=== PATIENT | female | born 1985 | race African-American/Black ===

== ENCOUNTER 2019-06-22 08:21 | Emergency (ER) | payer OTHER, SELFPAY ==
[2019-06-22 08:30] VITALS: BP 128/83; PULSE 77; RESP 16; TEMP 37.4; O2SAT 100
--- NOTE | 2019-06-22 08:43 | ED.FEMALEGU ---
HPI - Female Genitourinary General Stated complaint: uti Time Seen by Provider: 06/22/19 08:43 Source: patient and RN notes reviewed History of Present Illness HPI Narrative: Patient is a 33-year-old female that presents the urgent care with complaints of a possible UTI. Patient states that she has had 3 UTIs in the last 12 months and per records she is been treated with Keflex, Bactrim, Macrobid. Patient states that she is gone here and [facility] and is unsure if they have ever cultured her urine. Patient states no one is really ever discussed the results with her other than the fact that she had a UTI . Patient states that her symptoms seem to come and go with pain with urination, some frequency, some urgency and decreased urinary output. Patient states she is also noted a foul smell at different periods. Patient denies any concern for STD. Denies of any fever, nausea, vomiting, back pain. No other acute complaints. No acute distress noted. Patient read the plan of care. Related Data Allergies Allergy/AdvReac Type Severity Reaction Status Date / Time No Known Allergies Allergy Unverified 10/29/18 19:18 Review of Systems Review of Systems: Narrative: CONSTITUTIONAL: Denies fever, chills, or sweats. EYES: Denies visual changes, redness, or discharge. ENT: Denies rhinorrhea, congestion, sore throat, or otalgia. CARDIOVASCULAR: Denies chest pain, palpitations, or edema. RESPIRATORY: Denies cough or dyspnea. GASTROINTESTINAL: Denies abdominal pain, nausea, vomiting, or diarrhea. GENITOURINARY: Reports of dysuria, urgency, frequency, decreased urinary output?all intermittent symptoms with nothing consistent SKIN: Denies rash or itching. MUSCULOSKELETAL: Denies back pain, joint pain, or myalgia. NEUROLOGIC: Denies headache, numbness, or weakness. All other systems reviewed are negative, except as documented in HPI. PMFSH Comments At the time of my signature, I reviewed and agree with the nursing past medical, surgical, social, and family history. There is no relevant family history pertinent to the patient complaint. Exam Narrative: Exam Narrative: GENERAL: This is a well-nourished, well-developed patient, in no apparent distress. HEAD: normocephalic, atraumatic. EYES: PERRL. Sclera clear/white. Vision is grossly intact. EARS: External ears normal NOSE: External nose normal with no obvious nasal discharge THROAT: Mucous membranes moist NECK: Neck supple GASTROINTESTINAL: Abdomen soft, non-tender, nondistended. SKIN: warm, intact with no suspicious lesions or rash, good texture and turgor. NEURO: awake, alert, and oriented to person, place and time. There were no obvious focal neurologic abnormalities. EXTREMITIES: No clubbing, cyanosis, or edema. BACK: Negative bilateral CVA tenderness Course Vital Signs Vital signs: Vital Signs Temperature 99.3 F 06/22/19 08:30 Pulse Rate 77 06/22/19 08:30 Respiratory Rate 16 06/22/19 08:30 Blood Pressure 128/83 06/22/19 08:30 Pulse Oximetry 100 06/22/19 08:30 Temperature 99.3 F 06/22/19 08:30 Pulse Rate 77 06/22/19 08:30 Respiratory Rate 16 06/22/19 08:30 Blood Pressure 128/83 06/22/19 08:30 Pulse Oximetry 100 06/22/19 08:30 Reviewed MDM - Female Genitourinary MDM Narrative Medical decision making narrative: Reviewed urinalysis results with the patient. She is aware that urine analysis does not indicate urinary tract infection. No notable bacteria in the urine. However, we will culture the urine due to frequent UTIs within the last 12-month., And call her with any positive results. Advised the patient to call us after 72 hours if she is concerned with her culture results. Discussed with the patient due to her frequency of diagnosed UTIs without any culture results, she could most definitely have cystitis. Advised the patient to follow-up in the emergency room if she develops any increase in symptoms associated with nausea, vomiting, back pa
== END 2019-06-22 09:00 | disposition home or self-care (01) ==
PROVIDERS: Emergency Provider Nurse Practitioner Family; PCP Internal Medicine
DX: N30.90 Cystitis, unspecified without hematuria (principal); B96.20 Unspecified Escherichia coli [E. coli] as the cause of diseases classified elsewhere
CPT/HCPCS: 81003; 87077; 87086; 87088; 87186; 99213; G0463

== ENCOUNTER 2020-01-06 09:47 | Emergency (ER) | payer OTHER, SELFPAY ==
--- NOTE | ~2020-01-06 | XR_ITS ---
EXAMINATION: XR shoulder LT min 2V EXAM DATE: 01/06/2020 10:17 INDICATION: Left shoulder anterior pain with adduction. No known recent injury. TECHNIQUE: The following left shoulder projections obtained: frontal projection with internal rotatio n, frontal projection with external rotation, Grashey, and axillary (4+ views). There is no prior st udy for comparison. FINDINGS: There is elongated ovoid shaped ossification along the anterior aspect of the rotator cuff, could be calcific tendinosis. This finding has been indicated, marked on the examination for review, clinical correlation. Unremarkable left glenohumeral and acromioclavicular joints. There are no ac [place] fractures or dislocations identified. There is no subcutaneous gas. The soft tissue is unremark able. There are no radiopaque foreign bodies. IMPRESSION: Soft tissue ossification which could be anterior rotator cuff calcific tendinosis. No ac [place] left shoulder findings. Reviewed, dictated and finalized at location [facility] [employer] IMPRESSION: Soft tissue ossification which could be anterior rotator cuff calci fic tendinosis. No acute left shoulder findings.
[2020-01-06 09:55] VITALS: BP 142/86; PULSE 89; RESP 16; TEMP 37.2; O2SAT 99
--- NOTE | 2020-01-06 10:22 | ED.UPPEXIN ---
HPI - Extremity Injury (Upper) General Chief Complaint: Extremity Injury, Upper Stated Complaint: Left arm pain Related Data Home Medications Medication Instructions Recorded Confirmed No Home Medications 01/06/20 01/06/20 Allergies Allergy/AdvReac Type Severity Reaction Status Date / Time No Known Allergies Allergy Unverified 10/29/18 19:18 Review of Systems Review of Systems: Narrative: CONSTITUTIONAL: Denies fever, chills, or sweats. EYES: Denies visual changes, redness, or discharge. ENT: Denies rhinorrhea, congestion, sore throat, or otalgia. CARDIOVASCULAR: Denies chest pain, palpitations, or edema. RESPIRATORY: Denies cough or dyspnea. GASTROINTESTINAL: Denies abdominal pain, nausea, vomiting, or diarrhea. GENITOURINARY: Denies dysuria or hematuria. SKIN: Denies rash or itching. MUSCULOSKELETAL: Left shoulder pain NEUROLOGIC: Denies headache, numbness, dizziness, or weakness. PSYCHIATRIC: Denies anxiety or depression. [facility] Past Medical History Medical History UTI (urinary tract infection) Surgical History Surgical History No significant past surgical history Family History Family History (Updated 01/06/20 @ 10:34 by FANNY Wooten) Other Hypertension Social History Social History (Updated 01/06/20 @ 10:34 by FANNY Wooten) Smoking status: Never smoker Alcohol intake: never Substance use: never Living arrangements: with family Gender identity (if verbalized by the patient): Female Exam Narrative: Exam Narrative: GENERAL: Well-appearing, well-nourished, and in no acute distress. HEAD: Normocephalic, atraumatic. EYES: Conjunctiva are normal. ENT: Mucous membranes pink and moist. CHEST: Clear to auscultation. EXTREMITIES: Slightly decreased range of motion in left shoulder, distal sensation intact good peripheral pulses, good capillary refill. Pain noted with passive and active range of motion. SKIN: Warm, dry, no rash. NEURO: No focal deficits. Alert and oriented x3. Gait steady. PSYCH: Normal affect. No signs of depression or anxiety. Course Vital Signs Vital signs: Vital Signs Temperature 37.2 C 01/06/20 09:55 Pulse Rate 89 01/06/20 09:55 Respiratory Rate 16 01/06/20 09:55 Blood Pressure 142/86 H 01/06/20 09:55 Pulse Oximetry 99 01/06/20 09:55 Temperature 37.2 C 01/06/20 09:55 Pulse Rate 89 01/06/20 09:55 Respiratory Rate 16 01/06/20 09:55 Blood Pressure 142/86 H 01/06/20 09:55 Pulse Oximetry 99 01/06/20 09:55 Reviewed. Patient has been instructed to follow-up with her PCP regarding her blood pressure. MDM - Extremity Injury (Upper) MDM Narrative Medical decision making narrative: Patient's shoulder x-ray showed no acute abnormalities. Discussed with patient the need to see Ortho for further diagnostic evaluation of shoulder. Discussed using ice, NSAIDs and muscle relaxant at this time. Patient agrees with plan of care. Patient is stable for discharge to home with outpatient follow-up as needed. Differential Diagnosis Differential diagnosis: Likely dislocation of shoulder, fracture of clavicle and other (Strain, sprain, tendinitis) Critical Care Time Critical Care Time Critical Care Time: No Discharge Plan Discharge Clinical Impression: Acute shoulder pain Qualifiers: Laterality: left Qualified Code(s): M25.512 - Pain in left shoulder Patient Disposition: Home, Self-Care Condition: Stable Instructions: Antibiotic Form Additional Instructions: You may take Tylenol or ibuprofen for pain. Use muscle relaxant as directed. Ice for comfort. Please follow-up with orthopedist for further evaluation and possible diagnostic imaging of shoulder. Prescriptions: No Action No Home Medications RF: 0 Follow-up/Referrals: Mario,MD Annmarie [Primary Care Provider] - Calvin
== END 2020-01-06 10:45 | disposition home or self-care (01) ==
PROVIDERS: Emergency Provider Nurse Practitioner; PCP Internal Medicine
DX: M25.512 Pain in left shoulder (principal)
CPT/HCPCS: 73030; 99213; 99214; G0463

== ENCOUNTER 2020-04-22 16:12 | Emergency (ER) | payer OTHER, SELFPAY ==
[2020-04-22 16:15] VITALS: BP 135/84; PULSE 83; RESP 18; TEMP 36.9; O2SAT 100
--- NOTE | 2020-04-22 16:24 | ED.FEMALEGU ---
HPI - Female Genitourinary General Chief complaint: Urogenital-Female Stated complaint: poss uti Time Seen by Provider: 04/22/20 16:24 Source: patient and RN notes reviewed History of Present Illness HPI Narrative: Patient is a 34-year-old female who presents the urgent care with complaints of possible UTI. Patient states that she has had burning and pressure for approximately 1 week which is recently worsened. Patient denies of any fever, chills, nausea, vomiting, back pain, blood in the urine. No other acute complaints. No acute distress noted. Patient aware of the plan of care. Some parts of this dictation were generated by voice recognition software and may contain typographical and/or grammatical inaccuracies. Related Data Allergies Allergy/AdvReac Type Severity Reaction Status Date / Time sulfamethoxazole Allergy Rash Verified 04/22/20 16:26 [From Bactrim] trimethoprim [From Bactrim] Allergy Rash Verified 04/22/20 16:26 Review of Systems Review of Systems: Narrative: CONSTITUTIONAL: Denies fever, chills, or sweats. EYES: Denies visual changes, redness, or discharge. ENT: Denies rhinorrhea, congestion, sore throat, or otalgia. CARDIOVASCULAR: Denies chest pain, palpitations, or edema. RESPIRATORY: Denies cough or dyspnea. GASTROINTESTINAL: Denies abdominal pain, nausea, vomiting, or diarrhea. GENITOURINARY: Reports of dysuria and suprapubic pressure SKIN: Denies rash or itching. MUSCULOSKELETAL: Denies back pain, joint pain, or myalgia. NEUROLOGIC: Denies headache, numbness, or weakness. All other systems reviewed are negative, except as documented in HPI. [facility] Past Medical History Medical History UTI (urinary tract infection) Surgical History Surgical History No significant past surgical history Family History Family History (Updated 01/06/20 @ 10:34 by FANNY Wooten) Other Hypertension Social History Social History (Updated 01/06/20 @ 10:34 by FANNY Wooten) Smoking status: Never smoker Alcohol intake: never Substance use: never Gender identity (if verbalized by the patient): Female Comments At the time of my signature, I reviewed and agree with the nursing past medical, surgical, social, and family history. There is no relevant family history pertinent to the patient complaint. Exam Narrative: Exam Narrative: GENERAL: This is a well-nourished, well-developed patient, in no apparent distress. HEAD: normocephalic, atraumatic. EYES: PERRL. Sclera clear/white. Vision is grossly intact. EARS: External ears normal NOSE: External nose normal with no obvious nasal discharge, nares without redness, no rhinorrhea. THROAT: Mucous membranes moist NECK: Neck supple GASTROINTESTINAL: Abdomen soft, mild suprapubic tenderness, nondistended. SKIN: warm, intact with no suspicious lesions or rash, good texture and turgor. NEURO: awake, alert, and oriented to person, place and time. There were no obvious focal neurologic abnormalities. EXTREMITIES: No clubbing, cyanosis, or edema. BACK: Negative bilateral CVA tenderness Course Vital Signs Vital signs: Vital Signs Temperature 98.4 F 04/22/20 16:15 Pulse Rate 83 04/22/20 16:15 Respiratory Rate 18 04/22/20 16:15 Blood Pressure 135/84 04/22/20 16:15 Pulse Oximetry 100 04/22/20 16:15 Temperature 98.4 F 04/22/20 16:15 Pulse Rate 83 04/22/20 16:15 Respiratory Rate 18 04/22/20 16:15 Blood Pressure 135/84 04/22/20 16:15 Pulse Oximetry 100 04/22/20 16:15 Reviewed MDM - Female Genitourinary MDM Narrative Medical decision making narrative: Reviewed lab results with the patient. She is aware that urine analysis is likely indicative for urinary tract infection due to trace bacteria and blood. We will culture the urine and call within 72 hours if antibiotics need to be changed. If you n
== END 2020-04-22 16:40 | disposition home or self-care (01) ==
PROVIDERS: Emergency Provider Nurse Practitioner Family; PCP Internal Medicine
DX: N39.0 Urinary tract infection, site not specified (principal)
CPT/HCPCS: 81003; 87077; 87086; 87088; 99213; G0463

== ENCOUNTER 2022-05-16 09:57 | Emergency (ER) | payer OTHER, MEDICAID, SELFPAY ==
[2022-05-16 10:05] VITALS: BP 132/93; PULSE 89; RESP 18; TEMP 36.9; O2SAT 99
--- NOTE | 2022-05-16 10:20 | ED.GENADULT ---
HPI - General Adult General Chief complaint: Urogenital-Female Stated complaint: Urinary Problem Source: patient Mode of arrival: ambulatory Limitations: no limitations History of Present Illness HPI narrative: Patient presents for evaluation of urinary symptoms intermittently over the last few months. Symptoms include dysuria, urinary frequency, urgency decreased output, suprapubic pain and right lower back pain. She tried increasing her fluid intake which seemed to initially help her pain. She did experience recurrence of pain thereafter. No nausea, vomiting, diarrhea, vaginal bleeding or discharge. She has an IUD. Related Data Allergies Allergy/AdvReac Type Severity Reaction Status Date / Time sulfamethoxazole Allergy Rash Verified 04/22/20 16:26 [From Bactrim] trimethoprim [From Bactrim] Allergy Rash Verified 04/22/20 16:26 Review of Systems Review of Systems: CONSTITUTIONAL: Denies fever, chills, or sweats. EYES: Denies visual changes, redness, or discharge. ENT: Denies rhinorrhea, congestion, sore throat, or otalgia. CARDIOVASCULAR: Denies chest pain, palpitations, or edema. RESPIRATORY: Denies cough or dyspnea. GASTROINTESTINAL: Reports suprapubic pain. Denies nausea, vomiting, or diarrhea. GENITOURINARY: Reports urinary frequency, urgency, decreased urine output, dysuria. Denies vaginal bleeding or discharge. SKIN: Denies rash or itching. MUSCULOSKELETAL: Reports right lower back pain. Denies joint pain, or myalgia. NEUROLOGIC: Denies headache, numbness, dizziness, or weakness. PSYCHIATRIC: Denies anxiety or depression. PMF[facility] Past Medical History Medical History UTI (urinary tract infection) Surgical History Surgical History No significant past surgical history Family History Family History Other Hypertension Social History Social History Smoking status: Never smoker Alcohol intake: never Substance use: never Living arrangements: with family Gender identity (if verbalized by the patient): Female Exam Narrative: GENERAL: Well-appearing, well-nourished, and in no acute distress. HEAD: Normocephalic, atraumatic. EYES: PERRLA and EOMI. ENT: Nares clear, no rhinorrhea or epistaxis. Mucous membranes moist. Oropharynx without tonsillar hypertrophy exudate or other lesions. Bilateral TMs pearly leon nonbulging NECK: Supple. No adenopathy or masses. No carotid bruits or JVD CHEST: Clear to auscultation. No respiratory distress. No wheezes rales or rhonchi HEART: Regular rate and rhythm. No murmur heard. Normal peripheral pulses. ABDOMEN: Soft, nondistended, normal active bowel sounds. Mild suprapubic tenderness without rebound or guarding BACK: Right CVA tenderness EXTREMITIES: Normal range of motion. No edema. SKIN: Warm, dry, no rash. NEURO: No focal deficits. Alert and oriented x3. PSYCH: Normal mood and affect. Course Course Emergency Course: This is a 36-year-old female who presented for evaluation of urinary symptoms. She has evidence of UTI on urinalysis. Send urine for culture. Start Macrobid. Increase hydration. Follow up with primary provider. Go to the ER for worsening symptoms. Patient in agreement with plan of care Level of Care: Express Care Visit Vital Signs Vital signs: Vital Signs Temperature 36.9 C 05/16/22 10:05 Pulse Rate 89 05/16/22 10:05 Respiratory Rate 18 05/16/22 10:05 Blood Pressure 132/93 H 05/16/22 10:05 Pulse Oximetry 99 05/16/22 10:05 Oxygen Delivery Room Air 05/16/22 10:05 Temperature 36.9 C 05/16/22 10:05 Pulse Rate 89 05/16/22 10:05 Respiratory Rate 18 05/16/22 10:05 Blood Pressure 132/93 H 05/16/22 10:05 Pulse Oximetry 99 05/16/22 10:05 Oxygen Delivery Ami
== END 2022-05-16 10:20 | disposition home or self-care (01) ==
PROVIDERS: Emergency Provider Nurse Practitioner; PCP Internal Medicine
DX: N39.0 Urinary tract infection, site not specified (principal)
CPT/HCPCS: 81003; 87077; 87086; 87186; 99213; G0463

== ENCOUNTER 2022-11-08 19:14 | Emergency (ER) | payer OTHER, SELFPAY ==
[2022-11-08 19:26] VITALS: BP 136/85; RESP 16; TEMP 36.6; O2SAT 100
[2022-11-08 19:35] VITALS: PULSE 78
--- NOTE | 2022-11-08 19:45 | ED.URI ---
HPI - URI/Sore Throat General Chief Complaint: Upper Respiratory Infection Stated Complaint: Cough and Trouble Breathing Time Seen by Provider: 11/08/22 19:45 Source: patient, RN notes reviewed and old records reviewed Mode of arrival: ambulatory Limitations: no limitations History of Present Illness HPI Narrative: 37-year-old female presents to the [facility] with complaints cough and shortness of breath that has been intermittent for 2 weeks. Patient is not a smoker. No treatment prior to arrival. Related Data Allergies Allergy/AdvReac Type Severity Reaction Status Date / Time sulfamethoxazole Allergy Rash Verified 04/22/20 16:26 [From Bactrim] trimethoprim [From Bactrim] Allergy Rash Verified 04/22/20 16:26 Review of Systems Review of Systems: All systems reviewed & are unremarkable except as noted in HPI and below Constitutional: Constitutional: Reports no additional constitutional complaints Eyes: Eyes: Reports no additional eye complaints ENT: Reports system reviewed and no additional complaints, except as documented Cardiovascular: Cardiovascular: Reports no additional cardiovascular complaints, Denies chest pain and Denies dyspnea Respiratory: Respiratory: Reports as per HPI, Denies chest congestion, Reports cough and Reports dyspnea Gastrointestinal: Gastrointestinal: Reports no additional gastrointestinal complaints, Denies abdominal pain, Denies nausea and Denies vomiting Musculoskeletal: Musculoskeletal: Reports no additional musculoskeletal complaints Integumentary/Breasts: Skin/Breast: Reports system reviewed and no additional complaints, except as docu Neurologic: Reports system reviewed and no additional complaints, except as documented Psychiatric: Psychiatric: Reports no additional psychiatric complaints Allergic/Immunologic: Allergic/Immunologic: Reports no additional allergic/immunologic complaints [facility] Past Medical History Medical History UTI (urinary tract infection) Surgical History Surgical History No significant past surgical history Family History Family History Other Hypertension Social History Social History Smoking status: Never smoker Alcohol intake: never Substance use: never Living arrangements: with family Gender identity (if verbalized by the patient): Female Comments At the time of my signature, I reviewed and agree with the nursing past medical, surgical, social, and family history. There is no relevant family history pertinent to the patient complaint. Exam Const: General: cooperative, healthy appearing, comfortable, no acute distress, well developed, alert and well nourished Nutritional Appearance: well nourished Orientation/consciousness: patient oriented x3 Limitations: no limitations HENMT: Head: normal to inspection Ears: hearing grossly normal bilaterally, external ears normal, TM's normal bilaterally and EAC's normal Face/Nose/Sinus: Normal external nose present, Normal nares present, Normal nasal mucous membranes and turbinates present, normal facial exam and face symmetric Face and sinus: normal facial exam and face symmetric Mouth: Yes Normal oral and palatal mucosa present, Yes lip normal and Yes moist mucous membranes Throat: posterior oropharynx normal, tonsils normal, uvula midline and postnasal drainage Eyes: General: appearance normal, both eyes and all related structures Alignment and Position: alignment normal Periorbital: periorbital findings normal Pupils: Equal, round and reactive pupils present EOM: EOMs intact bilaterally Neck: Neck: normal visual inspection, full ROM, no lymphadenopathy and no meningeal signs Chest: Chest palpation & inspection: normal inspection of the chest Resp: Effort & Inspecti
== END 2022-11-08 19:58 | disposition home or self-care (01) ==
PROVIDERS: Emergency Provider Nurse Practitioner; PCP Internal Medicine
DX: J40 Bronchitis, not specified as acute or chronic (principal)
CPT/HCPCS: 99213; G0463